=== PATIENT | male | born 1965 | race Caucasian/White ===

== ENCOUNTER 2024-09-12 11:04 | Emergency (ER) | payer OTHER ==
[2024-09-12 13:13] LABS: BASOPHILS ABSOLUTE AUTO 0.02 K/uL (0.00-0.10); BASOPHILS PERCENT AUTO 0.2 % (0.1-1.3); EOSINOPHILS ABSOLUTE AUTO 0.22 K/uL (0.00-0.40); EOSINOPHILS PERCENT AUTO 2.3 % (0.0-5.4); HEMATOCRIT 44.1 % (38.4-49.7); HEMOGLOBIN 15.3 g/dL (12.9-16.9); IMMATURE GRAN ABSOLUTE AUTO 0.04 K/uL (0.00-0.23); IMMATURE GRAN PERCENT AUTO 0.4 % (0.0-0.7); LYMPHOCYTES ABSOLUTE AUTO 2.17 K/uL (0.8-3.3); LYMPHOCYTES PERCENT AUTO 22.9 % (11.4-47.7); MEAN CORPUSCULAR HEMOGLOBIN 30.1 pg (31.6-35.5); MEAN CORPUSCULAR HGB CONC 34.7 g/dL (31.6-35.5); MEAN CORPUSCULAR VOLUME 86.8 fL (81.4-99.0); MONOCYTES ABSOLUTE AUTO 1.03 K/uL (0.20-0.90); MONOCYTES PERCENT AUTO 10.9 % (3.3-12.6); NEUTROPHILS ABSOLUTE AUTO 5.99 K/uL (1.0-7.6); NEUTROPHILS PERCENT AUTO 63.3 % (40.0-78.1); PLATELET COUNT,PLT 315 K/uL (130-375); RED BLOOD CELL COUNT 5.08 M/uL (4.14-5.76); WHITE BLOOD CELL COUNT,WBC 9.5 K/uL (3.2-11.0)
[2024-09-12 13:33] LABS: CALCIUM 8.7 mg/dL (8.5-10.1); CREATININE 0.9 mg/dL (0.8-1.3); EST CRCL DRUG DOSING (CG) 86.56 mL/min; POTASSIUM,K 3.6 mmol/L (3.6-5.2)
[2024-09-12 13:34] LABS: ANION GAP 13.6 mmol/L (5.0-14.0)
[2024-09-12] MEDS: Iopamidol 612 MG/ML 100 ML Bottle IV ONE (15:28)
[2024-09-12] MEDS: Sodium Chloride 0.9% 10 ML Syringe FLUSH ONE (15:28)
[2024-09-12] MEDS: Sodium Chloride 0.9% 100 ML IV ONE (15:28)
== END 2024-09-12 16:04 | disposition home or self-care (01) ==
LOC: JP.ED 11:04
DX: S00.532A Contusion of oral cavity, initial encounter (principal); W22.8XXA Striking against or struck by other objects, initial encounter
CPT/HCPCS: 36415; 70491; 71260; 80048; 85025; 99284; Q9967